=== PATIENT | female | born 1965 | race African-American/Black ===

== ENCOUNTER 2018-10-21 15:41 | Emergency (ER) | payer MEDICARE, OTHER ==
[~2018-10-21] VITALS: Ht 167.6 cm; Wt 68.0 kg
[~2018-10-21 15:41] MED LIST: AMLO-512 PO; AMLO10TA55 PO; ASPI-891 PO; BUPR150T8 PO; CEPH250 PO; DIPH-518 PO; FAMO20 PO; HYD25 PO; LISI-618 PO; NIZO215C; OMEP20 PO; PRED20 PO; QUET300T2 PO; SIMV20TA6 PO; TEMO15C
[2018-10-21] MEDS ORDERED: ACETAMINOPHEN 500 MG TABLET PO ONE (16:30)
[2018-10-21] MEDS ORDERED: LIDOCAINE 2%/EPI 1:200,000/PF 20 ML VIAL INJ ONE (16:30)
[2018-10-21 19:11] VITALS: BP 116/65
== END 2018-10-21 19:19 | disposition home or self-care (01) ==
LOC: EMS 15:42
DX: S63.284A Dislocation of proximal interphalangeal joint of right ring finger, initial encounter (principal); F31.9 Bipolar disorder, unspecified; E78.00 Pure hypercholesterolemia, unspecified; I10 Essential (primary) hypertension; F17.210 Nicotine dependence, cigarettes, uncomplicated; Z79.899 Other long term (current) drug therapy; Y04.0XXA Assault by unarmed brawl or fight, initial encounter; Y93.89 Activity, other specified; Y92.89 Other specified places as the place of occurrence of the external cause; Y99.8 Other external cause status
CPT/HCPCS: 26770

== ENCOUNTER 2018-11-22 17:14 | Emergency (ER) | payer MEDICARE, OTHER ==
[~2018-11-22] VITALS: Ht 172.7 cm; Wt 90.9 kg
[~2018-11-22 17:14] MED LIST changes: -AMLO10TA55 PO; -CEPH250 PO
[2018-11-22] MEDS ORDERED: LIDOCAINE 1% 10 ML VIAL INJ ONE (20:30)
[2018-11-22 21:45] VITALS: BP 130/75
== END 2018-11-22 22:44 | disposition home or self-care (01) ==
LOC: EMS 17:14
DX: S63.284A Dislocation of proximal interphalangeal joint of right ring finger, initial encounter (principal); F31.9 Bipolar disorder, unspecified; K21.9 Gastro-esophageal reflux disease without esophagitis; E78.00 Pure hypercholesterolemia, unspecified; I10 Essential (primary) hypertension; G89.29 Other chronic pain; F17.210 Nicotine dependence, cigarettes, uncomplicated; Z79.899 Other long term (current) drug therapy; Z79.82 Long term (current) use of aspirin; X58.XXXA Exposure to other specified factors, initial encounter; Y93.89 Activity, other specified; Y92.89 Other specified places as the place of occurrence of the external cause; Y99.8 Other external cause status
CPT/HCPCS: 26755; 73140; 99284; J3490

== ENCOUNTER 2023-01-30 20:14 | Emergency (ER) | payer MEDICARE, OTHER ==
[~2023-01-30] VITALS: Ht 172.7 cm; Wt 88.6 kg
[~2023-01-30 20:14] MED LIST changes: +AMLO-258 PO; -AMLO-512 PO; -ASPI-891 PO; +ASPI325T87 PO; +BUPR-113 PO; -BUPR150T8 PO; -HYD25 PO; -LISI-618 PO; +LISI20TA24 PO; -NIZO215C; +PRED-554 PO; -PRED20 PO; +SIMV-43 PO; -SIMV20TA6 PO; -TEMO15C
[2023-01-30 21:04] VITALS: BP 146/86; PULSE 84; RESP 20; TEMP 98.4
[2023-01-30] MEDS ORDERED: HYDROCORTISONE 1% 30 GM CREAM TP ONE (23:45)
[2023-01-31] MEDS ORDERED: IBUP-1492 PO (00:36)
[2023-01-31] MEDS ORDERED: IBUPROFEN 600 MG TABLET PO ONE (00:45)
== END 2023-01-31 01:15 | disposition home or self-care (01) ==
LOC: EMS 20:15
DX: L25.9 Unspecified contact dermatitis, unspecified cause (principal); M25.562 Pain in left knee; F31.9 Bipolar disorder, unspecified; E78.00 Pure hypercholesterolemia, unspecified; I10 Essential (primary) hypertension; G89.29 Other chronic pain; M54.2 Cervicalgia; F17.210 Nicotine dependence, cigarettes, uncomplicated
CPT/HCPCS: 99283

== ENCOUNTER 2023-02-19 18:46 | Emergency (ER) | payer OTHER ==
[~2023-02-19] VITALS: Ht 175.3 cm; Wt 90.9 kg
[~2023-02-19 18:46] MED LIST changes: +IBUP-1492 PO
[2023-02-19] MEDS ORDERED: AMMO225L14 TP (18:58)
[2023-02-19] MEDS ORDERED: DICL100G60 TP (18:58)
[2023-02-19] MEDS ORDERED: QUET200T30 PO (18:58)
[2023-02-19] MEDS ORDERED: ASPI-1451 PO (18:58)
[2023-02-19] MEDS ORDERED: BUSP10TA3 PO (18:58)
[2023-02-19] MEDS ORDERED: DOCU100C33 PO (18:58)
[2023-02-19] MEDS ORDERED: LISI-658 PO (18:58)
[2023-02-19] MEDS ORDERED: RISP1TAB48 PO (18:58)
[2023-02-19] MEDS ORDERED: MELO-106 PO (18:58)
[2023-02-19] MEDS ORDERED: OMEP20CA12 PO (18:58)
[2023-02-19 18:59] VITALS: TEMP 98.7
[2023-02-19] MEDS ORDERED: HYDROCODONE/ACETAMINOPHEN 5-325 MG TABLET PO ONE (19:15)
[2023-02-19 19:30] LABS: BASOPHILS % (AUTO) 0.8 % (0.0-2.0); EOSINOPHILS % (AUTO) 5.3 % (1.0-6.0); HEMOGLOBIN 11.5 g/dL (12.0-16.0); LYMPHOCYTES # (AUTO) 1.3 K/uL (1.0-4.8); LYMPHOCYTES % (AUTO) 32.9 % (22.0-44.0); MEAN CORPUSCULAR HGB CONC 32.7 G/dL (31.0-37.0); MEAN CORPUSCULAR VOLUME 95 fL (80-100); MONOCYTES # (AUTO) 0.4 K/uL (0.1-1.0); NEUTROPHILS # (AUTO) 2.1 K/uL (1.8-7.7); PLATELET COUNT (AUTO) 271 K/uL (150-450)
[2023-02-19 19:35] LABS: ANION GAP 6 mmol/L (8-16); CARBON DIOXIDE 28 mmol/L (22-29); CHLORIDE 105 mmol/L (98-107); CREATININE 0.94 mg/dL (0.60-1.30); GLOMERULAR FILTR. RATE CALC > 60 mL/min (>60); GLUCOSE,RANDOM 91 mg/dL (70-110); POTASSIUM 3.5 mmol/L (3.5-5.1); SODIUM SERUM 139 mmol/L (136-145)
[2023-02-19 19:40] LABS: ALANINE AMINOTRANSFERASE 39 U/L (12-78); ALBUMIN 3.4 g/dL (3.4-5.0); ALKALINE PHOSPHATASE 77 U/L (46-116); ASPARTATE AMINOTRANSFERASE 33 U/L (15-37); BILIRUBIN,TOTAL 0.3 mg/dL (0.1-1.0); TOTAL PROTEIN, SERUM 7.5 g/dL (6.4-8.2)
[2023-02-19] MEDS ORDERED: CLIN-142 PO (22:24)
[2023-02-19 23:00] VITALS: BP 127/93; PULSE 89; RESP 18
[2023-02-20] MEDS ORDERED: CLIN-142 PO (01:18)
== END 2023-02-20 01:30 | disposition home or self-care (01) ==
LOC: EMS 18:46
DX: M25.562 Pain in left knee (principal); G89.29 Other chronic pain; M54.2 Cervicalgia; F31.9 Bipolar disorder, unspecified; E78.00 Pure hypercholesterolemia, unspecified; I10 Essential (primary) hypertension; F17.210 Nicotine dependence, cigarettes, uncomplicated
CPT/HCPCS: 80053; 85025; 93971; 99284

== ENCOUNTER 2023-02-22 20:09 | Emergency (ER) | payer OTHER ==
[~2023-02-22] VITALS: Ht 172.7 cm; Wt 90.9 kg
[~2023-02-22 20:09] MED LIST changes: -AMLO-258 PO; +AMMO225L14 TP; +ASPI-1451 PO; -ASPI325T87 PO; -BUPR-113 PO; +BUSP10TA3 PO; +CLIN-142 PO; +DICL100G60 TP; -DIPH-518 PO; +DOCU100C33 PO; -FAMO20 PO; -IBUP-1492 PO; +LISI-658 PO; -LISI20TA24 PO; +MELO-106 PO; -OMEP20 PO; +OMEP20CA12 PO; -PRED-554 PO; +QUET200T30 PO; -QUET300T2 PO; +RISP1TAB48 PO; -SIMV-43 PO
[2023-02-22 20:25] VITALS: BP 106/74; PULSE 80; RESP 16; TEMP 98.6
[2023-02-22] MEDS ORDERED: CARB-223 AD (21:43)
[2023-02-22] MEDS ORDERED: FLUCONAZOLE 150 MG TABLET PO ONE (21:45)
== END 2023-02-22 22:32 | disposition home or self-care (01) ==
LOC: EMS 20:10
DX: H61.21 Impacted cerumen, right ear (principal); N76.0 Acute vaginitis; F31.9 Bipolar disorder, unspecified; E78.00 Pure hypercholesterolemia, unspecified; I10 Essential (primary) hypertension; G89.29 Other chronic pain; M54.2 Cervicalgia; F17.210 Nicotine dependence, cigarettes, uncomplicated
CPT/HCPCS: 99283

== ENCOUNTER 2023-06-15 11:46 | Emergency (ER) | payer OTHER ==
[~2023-06-15] VITALS: Ht 170.2 cm; Wt 91.0 kg
[~2023-06-15 11:46] MED LIST changes: +CARB-223 AD
[2023-06-15 12:01] VITALS: TEMP 99.7
[2023-06-15] MEDS ORDERED: LOPERAMIDE HCL 2 MG CAPSULE PO ONE (12:15)
[2023-06-15] MEDS ORDERED: SODIUM CHLORIDE 0.9% 1,000 ML IV ONE (12:15)
[2023-06-15 12:37] LABS: BASOPHILS % (AUTO) 0.9 % (0.0-2.0); EOSINOPHILS % (AUTO) 0.4 % (1.0-6.0); HEMATOCRIT 47.8 % (36-46); HEMOGLOBIN 16.2 g/dL (12.0-16.0); LYMPHOCYTES # (AUTO) 0.9 K/uL (1.0-4.8); LYMPHOCYTES % (AUTO) 31.9 % (22.0-44.0); MEAN CORPUSCULAR HEMOGLOBIN 31.5 pg (26.0-34.0); MEAN CORPUSCULAR HGB CONC 33.9 G/dL (31.0-37.0); MEAN CORPUSCULAR VOLUME 93 fL (80-100); MONOCYTES # (AUTO) 0.3 K/uL (0.1-1.0); MONOCYTES % (AUTO) 10.4 % (2.0-9.0); NEUTROPHILS # (AUTO) 1.7 K/uL (1.8-7.7); NEUTROPHILS % (AUTO) 56.4 % (40.0-70.0); PLATELET COUNT (AUTO) 257 K/uL (150-450); RED BLOOD CELL COUNT(AUTO) 5.14 MIL/uL (4.00-5.20); RED CELL DISTRIBUTION WIDTH 13.2 % (11.5-14.5); WHITE BLOOD COUNT (AUTO) 2.9 K/uL (4.5-11.0)
[2023-06-15 12:51] LABS: CREATININE 1.28 mg/dL (0.60-1.30); POTASSIUM 4.2 mmol/L (3.5-5.1)
[2023-06-15 12:57] LABS: ALBUMIN 3.7 g/dL (3.4-5.0); BILIRUBIN,TOTAL 0.9 mg/dL (0.1-1.0); TOTAL PROTEIN, SERUM 9.4 g/dL (6.4-8.2)
[2023-06-15] MEDS ORDERED: LOPE-232 PO (13:14)
[2023-06-15 13:49] VITALS: BP 129/84; PULSE 79; RESP 16
== END 2023-06-15 13:52 | disposition home or self-care (01) ==
LOC: EMS 12:08
DX: E86.0 Dehydration (principal); R19.7 Diarrhea, unspecified; F31.9 Bipolar disorder, unspecified; E78.00 Pure hypercholesterolemia, unspecified; I10 Essential (primary) hypertension; G89.29 Other chronic pain; M54.50 Low back pain, unspecified; F17.210 Nicotine dependence, cigarettes, uncomplicated
CPT/HCPCS: 99284; 96360; 80053; 85025; 36415; 93005; J7030

== ENCOUNTER 2023-07-18 19:22 | Emergency (ER) | payer OTHER ==
[~2023-07-18] VITALS: Ht 177.8 cm; Wt 90.0 kg
[~2023-07-18 19:22] MED LIST changes: -AMMO225L14 TP; -CARB-223 AD; -CLIN-142 PO; -DICL100G60 TP; -DOCU100C33 PO; +LOPE-232 PO; -MELO-106 PO; -OMEP20CA12 PO; -QUET200T30 PO
[2023-07-18 19:32] VITALS: TEMP 97.9
[2023-07-18 23:03] LABS: BASOPHILS % (AUTO) 0.6 % (0.0-2.0); HEMATOCRIT 32.9 % (36-46); HEMOGLOBIN 11.2 g/dL (12.0-16.0); LYMPHOCYTES # (AUTO) 1.4 K/uL (1.0-4.8); LYMPHOCYTES % (AUTO) 25.1 % (22.0-44.0); MEAN CORPUSCULAR HEMOGLOBIN 32.5 pg (26.0-34.0); MEAN CORPUSCULAR HGB CONC 34.1 G/dL (31.0-37.0); MEAN CORPUSCULAR VOLUME 96 fL (80-100); MONOCYTES # (AUTO) 0.5 K/uL (0.1-1.0); MONOCYTES % (AUTO) 9.9 % (2.0-9.0); NEUTROPHILS # (AUTO) 3.3 K/uL (1.8-7.7); NEUTROPHILS % (AUTO) 61.4 % (40.0-70.0); PLATELET COUNT (AUTO) 268 K/uL (150-450); RED BLOOD CELL COUNT(AUTO) 3.45 MIL/uL (4.00-5.20); RED CELL DISTRIBUTION WIDTH 14.7 % (11.5-14.5); WHITE BLOOD COUNT (AUTO) 5.4 K/uL (4.5-11.0)
[2023-07-18 23:18] LABS: PH,URINE DRUG SCREEN 5.5 (5.0-8.0)
[2023-07-18 23:21] LABS: ALCOHOL, URINE DRUG SCREEN NEGATIVE (NEGATIVE); AMPHET/METH SCREEN,URINE POSITIVE (NEGATIVE); BARBITURATE SCREEN, URINE NEGATIVE (NEGATIVE); BENZODIAZEPINES SCREEN,URINE NEGATIVE (NEGATIVE); CANNABINOID SCREEN,URINE POSITIVE (NEGATIVE); COCAINE SCREEN,URINE NEGATIVE (NEGATIVE); METHADONE SCREEN, URINE NEGATIVE (NEGATIVE); OPIATE SCREEN,URINE NEGATIVE (NEGATIVE); PHENCYCLIDINE SCREEN,URINE NEGATIVE (NEGATIVE)
[2023-07-18 23:26] LABS: ANION GAP 9 mmol/L (8-16); CALCIUM, TOTAL 9.5 mg/dL (8.8-10.5); CARBON DIOXIDE 30 mmol/L (22-29); CHLORIDE 100 mmol/L (98-107); CREATININE 0.88 mg/dL (0.60-1.30); GLOMERULAR FILTR. RATE CALC > 60 mL/min (>60); GLUCOSE,RANDOM 91 mg/dL (70-110); POTASSIUM 3.2 mmol/L (3.5-5.1); SODIUM SERUM 138 mmol/L (136-145); UREA NITROGEN, BLOOD 20 mg/dL (7-18)
[2023-07-19] MEDS ORDERED: ACETAMINOPHEN 500 MG TABLET PO ONE (00:30)
[2023-07-19 01:50] VITALS: BP 158/84; PULSE 85; RESP 16
== END 2023-07-19 02:12 | disposition home or self-care (01) ==
LOC: EMS 20:23
DX: M25.572 Pain in left ankle and joints of left foot (principal); F15.90 Other stimulant use, unspecified, uncomplicated; E87.6 Hypokalemia; L85.3 Xerosis cutis; F31.9 Bipolar disorder, unspecified; K21.9 Gastro-esophageal reflux disease without esophagitis; E78.00 Pure hypercholesterolemia, unspecified; I10 Essential (primary) hypertension; F17.210 Nicotine dependence, cigarettes, uncomplicated; Z59.00 Homelessness unspecified
CPT/HCPCS: 80048; 80307; 85025; 99284

== ENCOUNTER 2023-12-28 05:15 | Inpatient (IN) | payer MEDICAID ==
[~2023-12-28] VITALS: Ht 172.7 cm; Wt 81.9 kg
[~2023-12-28 05:15] MED LIST changes: +ASPI-1450 PO; -ASPI-1451 PO; -BUSP10TA3 PO; -LISI-658 PO; +LISI-894 PO; -LOPE-232 PO; +MELA5TAB40 PO; +NALT50TA33 PO; +OLAN10TA26 PO; +OMEG-135 PO; +PANT-31 PO; -RISP1TAB48 PO; +SERT-440 PO
[2023-12-28 06:38] LABS: BASOPHILS % (AUTO) 1.2 % (0.0-2.0); HEMATOCRIT 34.2 % (36-46); HEMOGLOBIN 11.3 g/dL (12.0-16.0); LYMPHOCYTES # (AUTO) 0.9 K/uL (1.0-4.8); LYMPHOCYTES % (AUTO) 19.9 % (22.0-44.0); MEAN CORPUSCULAR HGB CONC 33.1 G/dL (31.0-37.0); MEAN CORPUSCULAR VOLUME 94 fL (80-100); MONOCYTES # (AUTO) 0.7 K/uL (0.1-1.0); MONOCYTES % (AUTO) 13.7 % (2.0-9.0); NEUTROPHILS # (AUTO) 2.9 K/uL (1.8-7.7); NEUTROPHILS % (AUTO) 60.2 % (40.0-70.0); PLATELET COUNT (AUTO) 223 K/uL (150-450); RED BLOOD CELL COUNT(AUTO) 3.65 MIL/uL (4.00-5.20); RED CELL DISTRIBUTION WIDTH 13.7 % (11.5-14.5); WHITE BLOOD COUNT (AUTO) 4.8 K/uL (4.5-11.0)
[2023-12-28 06:43] LABS: COVID AG,FIA SOURCE NASAL SWAB
[2023-12-28] MEDS: ACETAMINOPHEN 500 MG TABLET PO ONE (06:44)
[2023-12-28 07:14] LABS: ANION GAP 10 mmol/L (8-16); CALCIUM, TOTAL 9.6 mg/dL (8.8-10.5); CARBON DIOXIDE 26 mmol/L (22-29); CHLORIDE 100 mmol/L (98-107); CREATININE 1.13 mg/dL (0.60-1.30); GLOMERULAR FILTR. RATE CALC 60 mL/min (>60); GLUCOSE,RANDOM 80 mg/dL (70-110); POTASSIUM 3.1 mmol/L (3.5-5.1); SODIUM SERUM 136 mmol/L (136-145); UREA NITROGEN, BLOOD 25 mg/dL (7-18)
[2023-12-28 07:17] LABS: ALCOHOL, BLOOD (SERUM) < 3 mg/dL (0-10)
[2023-12-28 07:20] LABS: ALANINE AMINOTRANSFERASE 26 U/L (12-78); ALBUMIN 3.6 g/dL (3.4-5.0); ALKALINE PHOSPHATASE 76 U/L (46-116); ASPARTATE AMINOTRANSFERASE 31 U/L (15-37); BILIRUBIN,TOTAL 0.6 mg/dL (0.1-1.0); TOTAL PROTEIN, SERUM 8.2 g/dL (6.4-8.2)
[2023-12-28 07:37] LABS: SARS-COV2 (COVID) ANTIGEN,FIA Negative (Negative)
[2023-12-28] MEDS: POTASSIUM CHLORIDE 20 MEQ ER TABLET PO ONE (08:20)
[2023-12-28] MEDS: LORazepam 1 MG TABLET PO ONE (09:33)
[2023-12-28] MEDS: OLANZapine 10 MG TABLET PO ONE (09:37)
[2023-12-28 11:29] VITALS: BP 146/94; PULSE 80; RESP 18; TEMP 97.2
[2023-12-28 11:44] VITALS: BP 146/94; PULSE 80; RESP 18; TEMP 97.2
[2023-12-28] MEDS: SERTRALINE HCL 100 MG TABLET PO SCH (15:56)
[2023-12-28] MEDS ORDERED: PETROLATUM,WHITE 28 GM JELLY TP PRN (17:15)
[2023-12-28] MEDS ORDERED: ALBUTEROL SULFATE HFA 90 MCG/PUFF 8 GM INHALER IH PRN (17:15)
[2023-12-28] MEDS ORDERED: MAG HYDROX/ALUMINUM HYD/SIMETH ES 30 ML SUSPENSION UDCUP PO PRN (17:15)
[2023-12-28] MEDS ORDERED: CloNIDine HCL 0.1 MG TABLET PO PRN (17:15)
[2023-12-28] MEDS ORDERED: DOCUSATE SODIUM 100 MG CAPSULE PO PRN (17:15)
[2023-12-28] MEDS ORDERED: BENZOCAINE/MENTHOL LOZENGE PO PRN (17:15)
[2023-12-28] MEDS ORDERED: BACITRACIN 28 GM OINTMENT TP PRN (17:15)
[2023-12-28] MEDS ORDERED: OMEPRAZOLE 20 MG CAPSULE PO PRN (17:15)
[2023-12-28] MEDS ORDERED: MAGNESIUM HYDROXIDE SUSPENSION 30 ML UDCUP PO PRN (17:15)
[2023-12-28] MEDS ORDERED: ONDANSETRON HCL 4 MG TABLET PO PRN (17:15)
[2023-12-28] MEDS ORDERED: LOPERAMIDE HCL 2 MG CAPSULE PO PRN (17:15)
[2023-12-28 20:14] VITALS: BP 125/82; PULSE 77; RESP 18; TEMP 96.9
[2023-12-28] MEDS ORDERED: MELATONIN 5 MG TABLET PO ONE (21:00)
[2023-12-28] MEDS: OLANZapine 10 MG TABLET PO SCH (21:39)
[2023-12-28] MEDS: MELATONIN 5 MG TABLET PO SCH (21:39)
[2023-12-28] MEDS: LORazepam 2 MG TABLET PO PRN (21:40)
[2023-12-28] MEDS: HALOPERIDOL 5 MG TABLET PO PRN (21:40)
[2023-12-29 08:57] LABS: ANION GAP 8 mmol/L (8-16); CALCIUM, TOTAL 9.2 mg/dL (8.8-10.5); CARBON DIOXIDE 32 mmol/L (22-29); CHLORIDE 105 mmol/L (98-107); GLOMERULAR FILTR. RATE CALC > 60 mL/min (>60); GLUCOSE,RANDOM 118 mg/dL (70-110); POTASSIUM 3.6 mmol/L (3.5-5.1); SODIUM SERUM 145 mmol/L (136-145); UREA NITROGEN, BLOOD 15 mg/dL (7-18)
[2023-12-29] MEDS ORDERED: LISINOPRIL 10 MG TABLET PO ONE (09:00)
[2023-12-29] MEDS ORDERED: NALTREXONE HCL 50 MG TABLET PO ONE (09:00)
[2023-12-29] MEDS ORDERED: OMEGA-3/DHA/EPA/FISH OIL 1,000 MG CAPSULE PO ONE (09:00)
[2023-12-29] MEDS ORDERED: ASPIRIN 81 MG CHEWABLE TABLET PO SCH (09:00)
[2023-12-29] MEDS ORDERED: PANTOPRAZOLE SODIUM 40 MG DR TABLET PO ONE (09:00)
[2023-12-29] MEDS: NALTREXONE HCL 50 MG TABLET PO SCH (09:25)
[2023-12-29] MEDS: ASPIRIN 81 MG CHEWABLE TABLET PO SCH (09:25)
[2023-12-29] MEDS: OMEGA-3/DHA/EPA/FISH OIL 1,000 MG CAPSULE PO SCH (09:25)
[2023-12-29] MEDS: LISINOPRIL 10 MG TABLET PO SCH (09:26)
[2023-12-29] MEDS: PANTOPRAZOLE SODIUM 40 MG DR TABLET PO SCH (09:26)
[2023-12-29 09:45] VITALS: BP 121/61; PULSE 69; RESP 18; TEMP 97.8
[2023-12-29 21:47] VITALS: BP 129/69; PULSE 78; RESP 18; TEMP 97.8
[2023-12-29] MEDS: ZOLPIDEM TARTRATE 10 MG TABLET PO PRN (22:38)
[2023-12-30 08:00] VITALS: BP 145/84; PULSE 84; RESP 18; TEMP 98.1
[2023-12-30 21:24] VITALS: BP 130/87; PULSE 81; RESP 19; TEMP 97.3
[2023-12-31 01:50] VITALS: BP 122/80; PULSE 85; RESP 18; TEMP 97.9
[2023-12-31] MEDS: ACETAMINOPHEN 325 MG TABLET PO PRN (01:56)
[2023-12-31 02:50] VITALS: RESP 18
[2023-12-31 08:00] VITALS: BP 121/79; PULSE 70; RESP 18; TEMP 98.2
[2023-12-31 10:06] VITALS: BP 124/73; PULSE 76; RESP 18; TEMP 97.6
[2023-12-31] MEDS: IBUPROFEN 600 MG TABLET PO PRN (10:06)
[2023-12-31 20:00] VITALS: BP 112/57; PULSE 57; RESP 18; TEMP 97.7
[2023-12-31 20:20] VITALS: PULSE 60; RESP 18; TEMP 97.7
[2024-01-01 09:37] VITALS: BP 113/55; PULSE 56; RESP 18; TEMP 98
[2024-01-01 09:48] VITALS: BP 130/75; PULSE 64
[2024-01-01 13:51] VITALS: BP 118/68; PULSE 64; RESP 19; TEMP 97.6
[2024-01-01 14:51] VITALS: BP 124/72; PULSE 68; RESP 18; TEMP 97.3
[2024-01-01 22:44] VITALS: RESP 18
[2024-01-02 06:45] VITALS: BP 126/85; PULSE 79; RESP 18; TEMP 97.8
[2024-01-02 07:48] VITALS: BP 118/58; PULSE 63; RESP 16; TEMP 97.7
[2024-01-02 09:59] VITALS: BP 118/58; PULSE 63; RESP 16; TEMP 97.7
[2024-01-02 20:17] VITALS: BP 132/84; PULSE 84; RESP 18; TEMP 97.9
[2024-01-03 13:07] VITALS: BP 110/62; PULSE 68; RESP 18; TEMP 98.2
[2024-01-03 20:30] VITALS: BP 109/61; PULSE 81; RESP 18; TEMP 98.1
[2024-01-04 08:02] VITALS: BP 115/63; PULSE 66; RESP 18; TEMP 97.8
[2024-01-04 11:28] VITALS: BP 118/62; PULSE 72; RESP 18
[2024-01-04 12:28] VITALS: RESP 16
[2024-01-04 16:22] VITALS: RESP 18
[2024-01-04] MEDS ORDERED: OMEG-135 PO (16:58)
[2024-01-04] MEDS ORDERED: OLAN10TA74 PO (16:58)
[2024-01-04] MEDS ORDERED: NALT50TA33 PO (16:58)
[2024-01-04 17:22] VITALS: RESP 17
[2024-01-04 20:39] VITALS: BP 92/62; PULSE 61; RESP 18; TEMP 98.1
[2024-01-05 05:40] VITALS: BP 126/66; PULSE 61; RESP 19; TEMP 98.7
[2024-01-05 09:00] VITALS: BP 105/59; PULSE 78; RESP 18; TEMP 97.4
[2024-01-05] MEDS: GABAPENTIN 300 MG CAPSULE PO SCH (11:34)
[2024-01-05] MEDS ORDERED: GABA-1181 PO (13:57)
== END 2024-01-05 18:30 | disposition home or self-care (01) | DRG 750 ==
LOC: EMS 05:15 → 3EI 14:41
PROVIDERS: ADMIT Psychiatry & Neurology Psychiatry; ATTEND Psychiatry & Neurology Psychiatry
PROC: GZ56ZZZ Individual Psychotherapy, Supportive (ICD-10-PCS; 2024-01-02)
PROC: GZHZZZZ Group Psychotherapy (ICD-10-PCS; principal; 2024-01-05)
PROC: GZ51ZZZ Individual Psychotherapy, Behavioral (ICD-10-PCS; 2024-01-05)
DX: F25.9 Schizoaffective disorder, unspecified (principal); R45.851 Suicidal ideations; E78.00 Pure hypercholesterolemia, unspecified; E87.6 Hypokalemia; F15.90 Other stimulant use, unspecified, uncomplicated; F31.9 Bipolar disorder, unspecified; Z20.822 Contact with and (suspected) exposure to COVID-19; F41.9 Anxiety disorder, unspecified; G47.00 Insomnia, unspecified; I10 Essential (primary) hypertension; K59.00 Constipation, unspecified; F19.10 Other psychoactive substance abuse, uncomplicated; G89.29 Other chronic pain; K21.9 Gastro-esophageal reflux disease without esophagitis; Z87.891 Personal history of nicotine dependence; Z79.899 Other long term (current) drug therapy
CPT/HCPCS: 80048; 80053; 85025; 99285; G0480; Q9967; 36415-L1; 36415-TC; Z7502; Z7610